=== PATIENT | female | born 1980 | race African-American/Black ===

== ENCOUNTER 2017-06-22 15:54 | Emergency (ER) | payer SELFPAY ==
[2017-06-22] MEDS ORDERED: Dexamethasone 10 MG/ML VIAL ONE (16:22)
== END 2017-06-22 16:32 | disposition home or self-care (01) ==
LOC: ERS 15:54
DX: J06.9 Acute upper respiratory infection, unspecified (principal); H66.91 Otitis media, unspecified, right ear; E11.9 Type 2 diabetes mellitus without complications; E66.9 Obesity, unspecified; E78.5 Hyperlipidemia, unspecified; I10 Essential (primary) hypertension; F41.9 Anxiety disorder, unspecified; F32.9 Major depressive disorder, single episode, unspecified; Z79.4 Long term (current) use of insulin
CPT/HCPCS: 99283; J1100

== ENCOUNTER 2017-07-14 09:40 | Emergency (ER) | payer MEDICAID, SELFPAY | END 2017-07-14 10:25 | disposition home or self-care (01) | LOC: SCSER 09:40 | DX: L25.9 Unspecified contact dermatitis, unspecified cause (principal); E11.40 Type 2 diabetes mellitus with diabetic neuropathy, unspecified; I10 Essential (primary) hypertension; F41.9 Anxiety disorder, unspecified; F32.9 Major depressive disorder, single episode, unspecified | CPT/HCPCS: 99282 ==

== ENCOUNTER 2017-08-09 11:13 | Emergency (ER) | payer MEDICAID, SELFPAY ==
[2017-08-09 11:49] LABS: #Basophils 0.1 thou/uL (0.0-0.2); #Eosinphils 0.1 thou/uL (0.0-0.7); #Lymphocytes 2.9 thou/uL (1.20-3.40); #Monocytes 0.4 thou/uL (0.11-0.59); %Basophils 1.6 % (0.0-1.0); %Eosinophils 2.3 % (0.0-10.0); %Lymphocytes 44.5 % (21.0-51.0); %Monocytes 6.2 % (0.0-10.0); %Neutrophils 45.4 % (42.0-75.0); Hemoglobin 12.8 g/dL (12.0-16.0); Mean Corpuscular HGB CONC 34.6 g/dL (32.0-36.0); Mean Corpuscular Volume 83.9 fl (81.0-99.0); Mean Platelet Volume 7.7 fL (7.4-10.4); Platelet Count 216 thou/uL (130-400); RBC Distribution Width 11.3 % (11.5-14.5); Red Blood Cell (RBC) Count 4.41 mill/uL (4.20-5.40); White Blood Cell (WBC) Count 6.5 thou/uL (4.8-10.8)
== END 2017-08-09 15:20 | disposition home or self-care (01) ==
LOC: ERS 11:13
DX: N93.8 Other specified abnormal uterine and vaginal bleeding (principal); E11.40 Type 2 diabetes mellitus with diabetic neuropathy, unspecified; E66.9 Obesity, unspecified; E78.5 Hyperlipidemia, unspecified; I10 Essential (primary) hypertension; F41.9 Anxiety disorder, unspecified; F32.9 Major depressive disorder, single episode, unspecified
CPT/HCPCS: 36415; 84702; 85025; 99284

== ENCOUNTER 2017-08-18 10:25 | Emergency (ER) | payer SELFPAY ==
--- NOTE | 2017-08-18 11:15 | RAD ---
FOUR VIEWS RIGHT KNEE: Date: 08-18-17 History: Chronic right knee pain with superimposed more acute injury. Patient tripped and fell injuri ng right knee on Friday. Comparison: 03-03-15 FINDINGS: There is tricompartment osteophytosis. There is mild narrowing of the lateral joint compartment. No f racture or dislocation is seen. Again noted is the corticated curvilinear osseous density adjacent to the medial femoral condyle which may be related to heterotopic ossification. No significant joint ef fusion is present. No other interval change. IMPRESSION: 1. Osteoarthritis with mild narrowing of the lateral joint compartment. 2. No acute fracture or dislocation of the right knee. POS: [facility]
[2017-08-18] MEDS ORDERED: Adacel (T-DAP) 0.5 ML VIAL ONE (11:55)
== END 2017-08-18 12:10 | disposition home or self-care (01) ==
LOC: SCSER 10:25
DX: S83.91XA Sprain of unspecified site of right knee, initial encounter (principal); S60.411A Abrasion of left index finger, initial encounter; B37.3 Candidiasis of vulva and vagina; M17.11 Unilateral primary osteoarthritis, right knee; E66.9 Obesity, unspecified; E78.5 Hyperlipidemia, unspecified; I10 Essential (primary) hypertension; Z79.4 Long term (current) use of insulin; X50.1XXA Overexertion from prolonged static or awkward postures, initial encounter
CPT/HCPCS: 90471; 90715

== ENCOUNTER 2017-09-02 09:54 | Outpatient (CLI) | payer MEDICAID | END 2017-09-02 09:55 | disposition home or self-care (01) | LOC: BICULT 09:54 | PROVIDERS: ATTEND Nurse Practitioner | DX: N92.6 Irregular menstruation, unspecified (principal); N83.8 Other noninflammatory disorders of ovary, fallopian tube and broad ligament | CPT/HCPCS: 76856 ==

== ENCOUNTER 2017-09-19 17:06 | Observation (INO) | payer MEDICAID, SELFPAY ==
[2017-09-19 19:23] LABS: #Basophils 0.1 thou/uL (0.0-0.2); #Eosinphils 0.1 thou/uL (0.0-0.7); #Lymphocytes 3.1 thou/uL (1.20-3.40); #Monocytes 0.4 thou/uL (0.11-0.59); #Neutrophils 3.8 thou/uL (1.40-6.50); %Basophils 1.3 % (0.0-1.0); %Eosinophils 1.8 % (0.0-10.0); %Monocytes 5.6 % (0.0-10.0); %Neutrophils 50.4 % (42.0-75.0); Hemoglobin 13.2 g/dL (12.0-16.0); Mean Corpuscular HGB CONC 33.9 g/dL (32.0-36.0); Mean Corpuscular Hemoglobin 28.4 pg (27.0-31.0); Mean Corpuscular Volume 83.6 fl (81.0-99.0); Mean Platelet Volume 8.6 fL (7.4-10.4); Platelet Count 241 thou/uL (130-400); RBC Distribution Width 11.6 % (11.5-14.5); Red Blood Cell (RBC) Count 4.66 mill/uL (4.20-5.40); White Blood Cell (WBC) Count 7.5 thou/uL (4.8-10.8)
[2017-09-19 19:43] LABS: ALT (SGPT) 24 U/L (8-55); AST (SGOT) 23 U/L (5-34); Albumin 3.7 g/dL (3.5-5.0); Alkaline Phosphatase 96 U/L (40-150); Anion Gap 19 mmol/L (10-20); BUN (Urea Nitrogen) 10 mg/dL (7.0-18.7); Bilirubin, Total 0.3 mg/dL (0.2-1.2); Calc. Creatinine Clearance 0 mL/min (70-130); Calcium 9.1 mg/dL (7.8-10.44); Carbon Dioxide 23 mmol/L (22-29); Chloride 97 mmol/L (98-107); Estimated GFR-MDRD 71; Globulin 3.7 g/dL (2.4-3.5); Glucose 373 mg/dL (70-105); Potassium 3.9 mmol/L (3.5-5.1); Protein, Total 7.4 g/dL (6.0-8.3); Sodium 135 mmol/L (136-145)
[2017-09-19] MEDS ORDERED: Lidocaine Viscous Sol 2% 15 ml UD Cup ONE (22:01)
[2017-09-19] MEDS ORDERED: Mag-Al 1200 mg/1200 mg/30 ML UDCUP ONE (22:01)
[2017-09-19 22:17] LABS: Bilirubin Negative (Negative); Blood, Urine Negative (Negative); Clarity CLEAR (Clear); Glucose, Urine (Dipstick) >=1000 mg/dL (Negative); Leukocyte Negative (Negative); Nitrite Negative (Negative); Pregnancy Test - Urine (BHCG) Negative (Negative); Pregu Control Background? CLEAR/WHITE (CLR/WHITE); Pregu Control Bar Appear? YES (CONTROL BAR); Protein, Urine (Dipstick) Negative (Neg-Trace); Specific Gravity, Urine 1.026 (1.002-1.036); Urobilinogen 0.2 mg/dL (0.2-1.0); pH, Urine 5.5 (5.0-9.0)
[2017-09-19 22:18] LABS: Specific Gravity 1.026 (1.002-1.036)
[2017-09-19 22:46] LABS: CKMB 1.1 ng/mL (0-6.6); Troponin I Less than 0.010 ng/mL (< 0.028)
--- NOTE | 2017-09-19 23:49 | ULT ---
GALLBLADDER ULTRASOUND: 09/19/17 HISTORY: Right upper quadrant pain. Real time imaging of the right upper quadrant shows a normal appearing gallbladder. No gallstones or gallbladder wall thickening. The technologist reports a negative ultrasound Morris's sign. The visual ized liver parenchyma is of increased echogenicity suggesting some fatty change. The common duct is 4 mm. Pancreas is obscured. Right kidney is normal in size and not obstructed. IMPRESSION: 1. No evidence of gallstones. 2. Fatty changes of the liver. POS: [facility]
[2017-09-20] MEDS ORDERED: Ondansetron HCl/PF 4 MG/2 ML Vial ONE (01:42)
[2017-09-20] MEDS ORDERED: Insulin Regular 300 UNITS/3 ML VIAL ONE (02:25)
[2017-09-20 02:35] LABS: Hemoglobin A1c 10.7 % (4.0-6.0)
[2017-09-20 02:47] LABS: Base Excess-Venous -4.4 mmol/L (-30.0-30.0); Bicarbonate (HCO3v) 21.2 mmol/L (1.0-85.0); CO2 Tension (PvCO2) 39.7 mmHg (41.0-51.0); Calcium, Ionized 1.05 mmol/L (1.12-1.32); Hemoglobin - Calc 12.5 g/dL (12.0-18.0); O2 Tension (PvO2) 52.1 mmHg (35.0-45.0); T. Carbon Dioxide 22.4 mmol/L (1.0-85.0); pH (Venous) 7.335 (7.35-7.45); vO2 Saturation-calc 84.2 % (0.0-100.0)
[2017-09-20] MEDS ORDERED: Dextrose 50% Abboject 50 ML SYRINGE IVP PRN (03:53)
[2017-09-20] MEDS ORDERED: Dextrose 5% in Water 1,000 ML IV PRN ×2 (03:53→10:00)
[2017-09-20] MEDS ORDERED: Insulin Regular 300 UNITS/3 ML VIAL SC PRN (03:54)
[2017-09-20 04:20] LABS: Lactic Acid 3.3 mmol/L (0.5-2.2)
[2017-09-20] MEDS: Sodium Chloride 0.45% 1,000 ML IV SCH ×2 (05:06→16:27)
[2017-09-20] MEDS ORDERED: metroNIDAZOLE 500 MG in Premix Bag 1 BAG IVPB SCH (06:00)
--- NOTE | 2017-09-20 08:47 | CT ---
PRELIMINARY REPORT/[facility]/EMERGENCY AFTER HOURS PROCEDURE: EXAM: CT Abdomen and Pelvis With Intravenous Contrast CLINICAL HISTORY: 37 years old, female; Pain; Abdominal pain; Localized; Upper; Prior surgery; Patient HX: Er 18; 37 yo f presents to ed C/O upper abdominal pain onset yesterday. Pt states that she has h/o acid reflux. States that yesterday she started feeling like she was having reflux and felt bloated then started solano ving upper abdominal pain. Reports nausea, denies vomiting. Denies urinary complaints. Also reports c onstipation, last bm on , denies diarrhea. Surgical history of section x2, surgical history of tubal ligation TECHNIQUE: Axial computed tomography images of the abdomen and pelvis with intravenous contrast. Coronal reformatted images were created and reviewed. COMPARISON: No relevant prior studies available. FINDINGS: Lower thorax: 10 x 9 mm noncalcified nodule within the posterior left lower lobe, with possible feedi ng artery and draining vein, suggesting pulmonary arteriovenous malformation. ABDOMEN: Liver: Hepatic steatosis. Gallbladder and bile ducts: Normal. Pancreas: Normal. Spleen: Normal. Adrenals: Normal. Kidneys and ureters: Normal. Stomach and bowel: Mild wall thickening of the distal sigmoid colon and rectum, with minimal adjacent associated inflammatory stranding, likely infectious/inflammatory colitis. Appendix: The appendix is normal. PELVIS: Bladder: Normal. Reproductive: Normal as visualized. ABDOMEN and PELVIS: Intraperitoneal space: Normal. No free air. No significant fluid collection. Bones/joints: No acute fracture. No dislocation. Soft tissues: Small fat containing umbilical hernia. Vasculature: Phleboliths within the pelvis. No abdominal aortic aneurysm. Lymph nodes: Normal. IMPRESSION: 1. Mild wall thickening of the distal sigmoid colon and rectum, with minimal adjacent associated infl ammatory stranding, likely infectious/inflammatory colitis. 2. 10 x 9 mm noncalcified nodule within the posterior left lower lobe, with possible feeding artery a nd draining vein, suggesting pulmonary arteriovenous malformation. Recommend comparison to previous s tudies. If not available, recommend CT angiography chest for more definitive evaluation. 3. Incidental/non-acute findings are described above. Thank you for allowing us to participate in the care of your patient. Dictated and Authenticated by: Inderjit Penny MD 09/20/2017 2:00 AM Central Time ([place] & [place]) FINAL REPORT EMERGENCY AFTER HOURS CT ABDOMEN AND PELVIS WITH IV CONTRAST: Date: 09/20/17 HISTORY: Upper abdominal pain with onset of symptoms 1 day ago. History of acid reflux. Bloating and nausea. COMPARISON: Nonenhanced CT scan examination on 09/27/10. IMPRESSION: 1. Left lower lobe pulmonary nodule with measurement of 14.0 mm. Initial preliminary report by [facility] suggested this could potentially represent an arteriovenous malformation given proximity to vessels i n this region. However, this was not present on prior CT examination on 08/08/11. Follow-up CT angiog meseret of the thorax is recommended. 2. Mild fatty infiltration of the liver. 3. No CT evidence of appendicitis. 4. There is an approximately 3.2 cm left adnexal cystic structure probably related to an ovarian cys t. 5. There is mention of mild wall thickening of the distal sigmoid colon and rectum by Eliezerad. While th is could be related to colitis, this may be related to incomplete distention. Findings are in agreement with the preliminary report by [facility]ecia. POS: [facility]
[2017-09-20] MEDS ORDERED: Bisacodyl 5 MG TAB PO PRN (09:57)
[2017-09-20] MEDS ORDERED: Acetaminophen 325 MG TAB PO PRN (09:57)
[2017-09-20] MEDS ORDERED: Acetaminophen 650 MG Suppository PR PRN (09:57)
[2017-09-20] MEDS ORDERED: Dextrose 50% Abboject 50 ML SYRINGE SLOW IVP PRN (10:00)
[2017-09-20] MEDS: HumaLOG 300 UNITS/3 ML VIAL SC PRN ×3 (12:25→21:35)
[2017-09-20] MEDS ORDERED: Pantoprazole 40 MG VIAL IVP PRN (12:31)
[2017-09-20] MEDS ORDERED: Nitroglycerin 0.4 MG TAB (25 Tab Bottle) PO PRN (13:08)
--- NOTE | 2017-09-20 13:29 | HP ---
PRIMARY CARE PROVIDER: [facility]. CHIEF COMPLAINT: Abdominal pain. HISTORY OF PRESENT ILLNESS: Ms. Black is a pleasant 37-year-old lady who was seen at [facility] on 05/20/2018. She reports that the pain started 2 days ago. It is in the epigas trium, on and off, she reports feeling occasionally lightheaded when standing up. Her left arm hurt. She also reports mild chest discomfort that lasted briefly, but has not recurred. She denies any f tray or chills. She reports nausea, but no vomiting. She denies any diarrhea. She has been taking metronidazole over the last 3 days for vaginal infection. She had no other complaints. By the time I saw her, she reports that her epigastric pain has improve d. REVIEW OF SYSTEMS: The following complete review of systems was negative, unless otherwise mentioned in the HPI or below: Constitutional: Weight loss or gain, ability to conduct usual activities. Skin: Rash, itching. Eyes: Double vision, pain. ENT/Mouth: Nose bleeding, neck stiffness, pain, tenderness. Cardiovascular: Palpitations, dyspnea on exertion, orthopnea. Respiratory: Shortness of breath, wheezing, cough, hemoptysis, fever or night sweats. Gastrointestinal: Poor appetite, abdominal pain, heartburn, nausea, vomiting, constipation, or diarr hea. Genitourinary: Urgency, frequency, dysuria, nocturia. Musculoskeletal: Pain, swelling. Neurologic/Psychiatric: Anxiety, depression. Allergy/Immunologic: Skin rash, bleeding tendency. PAST MEDICAL HISTORY: Significant for diabetes mellitus type 2, diabetic neuropathy, chronic right k nee pain, obesity, dyslipidemia, and hypertension. PAST SURGICAL HISTORY: Significant for section x2, tubal ligation and left second toe amput ation for osteomyelitis. PSYCHIATRIC HISTORY: Significant for anxiety, depression. SOCIAL HISTORY: The patient is a current smoker. She denies alcohol use or recreational drug use. FAMILY HISTORY: Both parents had diabetes mellitus and heart disease. ALLERGIES: No known drug allergies. CURRENT MEDICATIONS: Include Lantus insulin 30 units subcutaneously 2 times a day, NovoLog insulin a s needed on sliding scale and metronidazole. PHYSICAL EXAMINATION: GENERAL: On examination, Ms. Black is awake and alert, not in acute distress. VITAL SIGNS: Blood pressure is 116/78, pulse is 93. She is breathing at rate of 16 and saturating 9 6% on room air. She is afebrile. She is morbidly obese, with BMI of 44.7 kilogram per square meter. EYES: No scleral icterus. No conjunctival pallor. ENT: Moist mucosal membranes, no oropharyngeal erythema or exudates. NECK: Supple, nontender, normal range of movement. Trachea is midline. RESPIRATORY: Accessory muscles of breathing are not active. Chest wall movements are symmetric bila terally. LUNGS: Clear to auscultation, without wheeze, rhonchi or crepitations. CARDIOVASCULAR: S1 and S2 are heard, regular. LUNGS: Peripheral pulses palpable. No carotid bruit, no pericardial rub. ABDOMEN: Soft, mild epigastric tenderness, no guarding or rigidity. Bowel sounds are heard, no hepa tomegaly, no splenomegaly. NEUROLOGIC: Cranial nerves II-XII intact. Deep tendon reflexes are 2+. MUSCULOSKELETAL: Power is 5/5 in all 4 extremities. Normal range of movement at all major extremity joints. Status post left second toe amputation. SKIN: No rashes or subcutaneous nodules. LYMPHATIC: No cervical lymphadenopathy. PSYCHIATRIC: Normal mood, normal affect. The patient is oriented to person, place, and time. IMAGING DATA AND LABORATORY DATA: Ms. Black' labs and investigations were reviewed. I reviewed her electrocardiogram, which shows normal sinus rhythm, no ST changes to suggest an acute coronary syndro me. She does have poor R-wave progression. She had a CT scan of the abdomen and pelvis, which showed a left lower lobe pulmonary nodule, which c ould be an AV malformation. Followup angiogram of the chest is recommended by radiologist. She also has mild fatty infiltration of the liver, no CT evidence of appendicitis and 3.2 cm left adnexal cys tic structure, probably related to an ovarian cyst. CT scan was initially reported as showing mild w all thickening of the distal sigmoid colon and rectum. Local radiologist feels that this could be re lated to incomplete distention. She also had abdominal ultrasound, which did not show any evidence o f gallstones. She had fatty changes in the liver. Laboratory investigations show normal lipase, leydi vated lactic acid of 3.3, decreased sodium of 135, normal potassium, normal creatinine, unremarkable liver profile and an unremarkable CBC. Urinalysis is positive for glucose. Urine test is negative. She has elevated beta hydroxybutyrate of 0.58. I should note that she has a normal carbon dioxide the normal anion gap. ASSESSMENT AND PLAN: Ms. Black is a pleasant 37-year-old lady who was seen at [facility] on 09/20/2017. Her problem list includes: 1. Abdominal pain: Etiology not known. CT findings as described above. However, this does not cor relate with location of the pain even if it was colitis. She does not have any other symptoms of col itis such as diarrhea. We will not continue her on antibiotics except for the metronidazole, which s he is taking for vaginal infection. She seems to be tolerating diet well and was eating pizza when I saw her. 2. Hyponatremia: Mild, we will recheck. 3. Lung lesion: The patient will likely need a CT scan of the chest as outpatient for evaluation o f this lesion. 4. Chest pain: Given her significant risk factors, we will request a stress test. 5. Diabetes mellitus: Start Accu-Cheks, insulin sliding scale. Many thanks for allowing me to participate in your patient's care. Please feel free to contact me wi th any questions or concerns. LEVEL OF RISK: Moderate. LEVEL OF COMPLEXITY: Moderate.
[2017-09-20 15:00] LABS: Troponin I Less than 0.010 ng/mL (< 0.028)
[2017-09-20] MEDS ORDERED: metroNIDAZOLE 500 MG TAB PO SCH (15:00)
[2017-09-20 16:35] VITALS: BMI 46.3
[2017-09-20] MEDS ORDERED: ISOVUE-370 76%-LOCM 1 ML ONE (16:44)
[2017-09-21 05:29] LABS: #Basophils 0.1 thou/uL (0.0-0.2); #Eosinphils 0.1 thou/uL (0.0-0.7); #Lymphocytes 2.1 thou/uL (1.20-3.40); #Monocytes 0.4 thou/uL (0.11-0.59); #Neutrophils 2.5 thou/uL (1.40-6.50); %Basophils 1.2 % (0.0-1.0); %Eosinophils 2.6 % (0.0-10.0); %Monocytes 8.2 % (0.0-10.0); %Neutrophils 48.1 % (42.0-75.0); Hemoglobin 11.5 g/dL (12.0-16.0); Mean Corpuscular HGB CONC 33.8 g/dL (32.0-36.0); Mean Corpuscular Hemoglobin 28.3 pg (27.0-31.0); Mean Corpuscular Volume 83.8 fl (81.0-99.0); Mean Platelet Volume 8.5 fL (7.4-10.4); Platelet Count 196 thou/uL (130-400); RBC Distribution Width 11.4 % (11.5-14.5); Red Blood Cell (RBC) Count 4.06 mill/uL (4.20-5.40); White Blood Cell (WBC) Count 5.1 thou/uL (4.8-10.8)
[2017-09-21 05:49] LABS: Anion Gap 13 mmol/L (10-20); BUN (Urea Nitrogen) 9 mg/dL (7.0-18.7); Calc. Creatinine Clearance 195 mL/min (70-130); Calcium 8.6 mg/dL (7.8-10.44); Carbon Dioxide 24 mmol/L (22-29); Chloride 104 mmol/L (98-107); Estimated GFR-MDRD Greater than 90; Glucose 280 mg/dL (70-105); Potassium 4.4 mmol/L (3.5-5.1); Sodium 137 mmol/L (136-145)
[2017-09-21] MEDS ORDERED: Enoxaparin Sodium 40 MG/0.4 ML SYRINGE SC SCH (09:00)
--- NOTE | 2017-09-21 12:41 | NM ---
NUCLEAR MEDICINE CARDIAC MYOCARDIAL PERFUSION SPECT EJECTION FRACTION STUDY WALL MOTION CINE: HISTORY: 37-year-old female smoker with diabetes mellitus, dyslipidemia, hypertension, and family history of c oronary artery disease, presents with acute chest pain. Dr. Vasquez reported the acute myocardial ischemia by telephone with nurse, Lilly Orantes RN, at 12:29 p .m. on 09-21-17. TECHNIQUE: Number of days: 2 Rest study: Tc99m sestamibi (Cardiolite) dose: 39.3 mCi Pharmacologic stress: adenosine dose: 70 mg Stress study: Tc99m sestamibi (Cardiolite) dose: 27.5 mCi FINDINGS: CARDIAC (MYOCARDIAL PERFUSION) SPECT There is a small to moderate sized perfusion defect in the anteroseptal wall near the apex on the str ess images, which is not present on the rest images. EJECTION FRACTION STUDY EF = 60% WALL MOTION CINE No gross wall motion abnormality identified. IMPRESSION: 1. Positive for reversible ischemia involving the left anterior descending coronary artery territory. Code CR JN R POS: [facility]
[2017-09-21] MEDS: HumaLOG 300 UNITS/3 ML VIAL SC PRN ×2 (15:04→22:37)
[2017-09-21] MEDS: metroNIDAZOLE 500 MG TAB PO SCH ×2 (15:06→21:20)
[2017-09-21] MEDS ORDERED: Communication Order-Pharmacy FS SCH (17:45)
--- NOTE | 2017-09-21 17:48 | PRG ---
DATE OF SERVICE: 09/21/2017 SUBJECTIVE: The patient is seen and examined at the bedside. She does not have nausea, vomiting, or abdominal pain anymore. Her chest pain is gone too. She does not have any diarrhea or constipation . She just came back from the Radiology Department where she had her stress test done. OBJECTIVE: GENERAL: She is very obese. VITAL SIGNS: Blood pressure is 123/78, pulse is 89, respiratory rate is 16, O2 saturation is 99% on room air, temperature is 97.3 degrees Fahrenheit. Her BMI is 45.9. HEENT: Head is atraumatic, normocephalic. Eyes: PERRLA. Sclerae nonicteric. Conjunctivae pinkish . Oral mucosa is moist. NECK: Obese, supple. LUNGS: Clear. HEART: S1, S2 normal, no S3, no S4, no any murmur. ABDOMEN: Obese, nondistended. Bowel sounds are present. EXTREMITIES: No clubbing, cyanosis, or edema. NEUROLOGIC: She is alert and oriented x4. There is no any sensory or motor deficits present. Crani al nerves are intact. LABORATORY DATA AND X-RAY FINDINGS: Showed white count of 5.1, hemoglobin 11.5, hematocrit 34.1, baldomero telet count is 196,000. Normal chemistry except for glucose which is 280. Accu-Cheks are running be tween 271 and 327, calcium is 8.6. Nuclear test on her heart was done and it showed positive for rev ersible ischemia involving the left anterior descending coronary artery territory. IMPRESSION: 1. Abdominal pain which improved to the point that she does not have much of any symptoms anymore. 2. Chest pain with positive stress test. 3. Left lower lobe nodule measuring 14 mm, most likely arteriovenous malformation, giving proximity to vessels in this region, but that is not very certain. Radiologist is recommending CT angiogram of the thorax to evaluate this situation. 4. Left adnexal cyst 3.2 cm. 5. Diabetes mellitus with elevated glycemia, most likely secondary to situation that she is not back on her long-acting insulin yet. 6. Morbid obesity with body mass index of 45. PLAN: The patient was told that she will have to have follow up with her primary care physician afte r discharge from the hospital and the primary care physician will make decision whether she will have to be set up for the CT angiogram of the chest or this will be done through Pulmonary doctor donald stratton. At this point, we are going to have Dr. Talavera to be consulted regarding her positive stress test , most likely she will have to go through the cardiac catheterization tomorrow. We will start her on a long-acting insulin 30 units twice a day, this insulin glargine and she will be back on her lisino pril and metronidazole 500 mg 3 times a day. I believe that the outpatient follow up for her pulmona ry nodule evaluation would be most appropriate since she is going to have most likely additional IV c ontrast to evaluate her heart condition, but this will be defined after the Cardiology consultation i s done. We will continue her Accu-Cheks before meals and at bedtime.
--- NOTE | 2017-09-21 18:33 | CON ---
DATE OF CONSULTATION: 09/21/2017 REASON FOR CONSULTATION: Abnormal stress test. HISTORY OF PRESENT ILLNESS: Ms. Black is a pleasant 37-year-old female who comes to the hospital for chest pain. She was starting to have a left-sided chest pain into the shoulder and to the arm yesterday evening. She took an ibuprofen, woke up the next morning without the pain. Kendra mistry also started to feel epigastric pain the next morning, so she decided to come in for evaluation. S he has been dealing with this for the last two days. Currently, she is pain free. PAST MEDICAL HISTORY: 1. Hypertension. 2. Hyperlipidemia. 3. Obesity. 4. Type 2 diabetes with diabetic neuropathy. 5. Chronic right knee pain. PAST SURGICAL HISTORY: 1. x2. 2. Tubal ligation. 3. Left second toe amputation for osteomyelitis. SOCIAL HISTORY: She denies any tobacco even though the chart says current smoker. She tells me she does not smoke. Denies any alcohol or drug use. FAMILY HISTORY: Both parents have diabetes and heart disease. OUTPATIENT MEDICATIONS: Include, 1. Lantus 30 units subcu twice a day. 2. NovoLog insulin sliding scale. 3. Metronidazole for vaginal infection recently. ALLERGIES: No known drug allergies. REVIEW OF SYSTEMS: A 12-point review of systems was done and is all negative unless stated in the hi story of present illness. PHYSICAL EXAMINATION: VITAL SIGNS: Temperature 97.2, pulse 104, respiratory rate 16, satting 95% on room air. Blood press ure 129/77. GENERAL: Awake, alert, oriented x3. No distress. HEENT: Normocephalic, atraumatic. NECK: Supple. LUNGS: Clear. CARDIOVASCULAR: S1, S2, no S3 or S4. No murmurs. No rubs. ABDOMEN: Soft, positive bowel sounds. EXTREMITIES: No edema. SKIN: Warm and dry. LABORATORY WORK: CBC was unremarkable. ABG chemistries were unremarkable. GFR is greater than 90. Troponin was undetectable x3. UA was negative except for 1000 glucose. Beta hydroxybutyrate was li ttle bit high 0.58. CT of the abdomen and pelvis was reviewed. She has what appears to be a little bit of colitis in the distal sigmoid. This is not consistent with her symptoms. She also have a noncalcified nodule in t he posterior left lower lobe. This is just of an AV malformation. Stress test shows normal LV funct ion with moderate size anterior ischemia. ASSESSMENT: 1. Chest pain. 2. Abnormal stress test showing possible anterior ischemia left anterior descending distribution. 3. Possible sigmoid colitis asymptomatic. 4. Diabetes poorly controlled with elevated hemoglobin A1c. PLAN: We spoke at length about further risk stratification for the heart catheterization. She is ag reeable to proceeding. We spoke about the risk and benefit of the procedure. Risks including but no t limited to stroke, LA, , bleeding, and need for blood transfusion, need for emergent vessel re pair, need for emergency bypass surgery. We spoke about bare metal drug eluting stent. We will do b are metal stenting. We also spoke about contrast reaction. She agrees to proceed. Bare metal stent s if needed. Further recommendations per results of coronary angiogram.
[2017-09-21] MEDS ORDERED: Non-Formulary Item 1 EACH (Insulin Glargine,Hum.Rec.Anlog 30 UNIT) SQ SCH (21:00)
[2017-09-21] MEDS ORDERED: Insulin Detemir 100 UNITS/ML 30 UNITS in Pre-Filled Syringe 1 EACH SC SCH (21:00)
[2017-09-21] MEDS ORDERED: Atorvastatin Calcium 10 MG TAB PO SCH (21:00)
[2017-09-22] MEDS: metroNIDAZOLE 500 MG TAB PO SCH ×2 (05:17→14:43)
[2017-09-22] MEDS ORDERED: Sodium Chloride 0.9% 1,000 ML IV SCH (06:00)
--- NOTE | 2017-09-22 08:45 | PDOC.PN ---
- Subjective Encounter Start Date: 09/22/17 Encounter Start Time: 08:43 Subjective: nsg notes rev, sourav ovn, pt no new c/o, no further CP, no abd pain -: understands POC for [facility] today, no ques - Objective Vital Signs & Weight: Vital Signs (12 hours) Temp Pulse Resp BP BP Pulse Ox 09/22/17 07:56 97.8 F 106 H 16 124/72 96 09/22/17 05:17 95 121/76 09/22/17 04:00 96.9 F L 95 14 121/76 94 L Weight Weight 284 lb 4.8 oz I&O: 09/21/17 09/22/17 09/23/17 06:59 06:59 06:59 Intake Total 1575 1410 Output Total 2650 1800 Balance -1075 -390 Result Diagrams: 09/21/17 04:45 09/21/17 04:45 Additional Labs: Accuchecks 09/22/17 09/21/17 09/21/17 06:13 21:19 17:31 POC Glucose 294 H 300 H 306 H 09/21/17 12:55 POC Glucose 327 H Phys Exam - Physical Examination Constitutional: NAD HEENT: PERRLA, moist MMs Respiratory: no wheezing, no rales, no rhonchi, clear to auscultation bilateral Cardiovascular: RRR, no significant murmur, no rub Gastrointestinal: soft, non-tender, positive bowel sounds Musculoskeletal: no edema, pulses present Neurological: moves all 4 limbs Psychiatric: normal affect, A&O x 3 Dx/Plan - Plan * chest pain * concern for + stress test, apprec cardiology c/s * plan for [facility] today concern for colitis C diff negative suspect potential viral etiology continue to monitor, no further diarrhea t/c d/c flagyl s/p 7d oral course diet: cardiac post cath activity: as angel post cath dvt ppx: enoxaparin Review of Systems - Medications/Allergies Allergies/Adverse Reactions: Allergies Allergy/AdvReac Type Severity Reaction Status Date / Time No Known Allergies Allergy Verified 09/20/17 03:46 Medications: Current Medications Acetaminophen (Tylenol) 650 mg PO Q4H PRN PRN Reason: Headache/Fever or Pain Last Admin: 09/21/17 18:28 Dose: 650 mg Acetaminophen (Tylenol) 650 mg [place] Q4H PRN PRN Reason: Headache/Fever or Pain Atorvastatin Calcium (Lipitor) 10 mg PO HS [facility] Last Admin: 09/21/17 21:21 Dose: 10 mg Bisacodyl (Dulcolax) 10 mg PO DAILYPRN PRN PRN Reason: Constipation Dextrose/Water (Dextrose 50%) 25 gm SLOW IVP PRN PRN PRN Reason: Hypoglycemia Glucagon (Glucagon) 1 mg IM PRN PRN PRN Reason: Hypoglycemia Dextrose/Water (D5w) 1,000 mls @ 0 mls/hr IV .Q0M PRN; As Directed PRN Reason: Hypoglycemia Sodium Chloride (Normal Saline 0.9%) 1,000 mls @ 100 mls/hr IV .Q10H [facility] Last Admin: 09/22/17 05:16 Dose: 1,000 mls Lisinopril (Zestril) 5 mg PO DAILY [facility] Last Admin: 09/22/17 05:17 Dose: 5 mg Metronidazole (Flagyl) 500 mg PO TID [facility] Last Admin: 09/22/17 05:17 Dose: 500 mg Miscellaneous Information (Communication Order-Pharmacy) 0 each FS ONE [facility] Stop: 09/22/17 12:00 Nitroglycerin (Nitrostat) 0.4 mg PO Q5MIN PRN PRN Reason: Chest Pain Pantoprazole Sodium (Protonix) 40 mg IVP DAILY PRN PRN Reason: Heartburn or Indigestion Last Admin: 09/20/17 12:53 Dose: 40 mg Pantoprazole Sodium (Protonix) 40 mg PO DAILY PRN PRN Reason: Heartburn or Indigestion Saccharomyces Boulardii (Florastor) 250 mg PO DAILY [facility] Last Admin: 09/22/17 05:16 Dose: 250 mg Sodium Chloride (Flush - Normal Saline) 10 ml IVF Q12HR [facility] Last Admin: 09/22/17 05:18 Dose: 10 ml Sodium Chloride (Flush - Normal Saline) 10 ml IVF PRN PRN PRN Reason: Saline Flush
[2017-09-22] MEDS ORDERED: Saccharomyces boulardii 250 MG CAP PO SCH (09:00)
[2017-09-22] MEDS ORDERED: Lisinopril 5 MG TAB PO SCH (09:00)
[2017-09-22] MEDS ORDERED: Heparin 0 ML ONE (12:54)
[2017-09-22] MEDS ORDERED: Lidocaine 1% (PF) 30 ML VIAL ONE (13:05)
[2017-09-22] MEDS ORDERED: Heparin 10,000 UNITS/1 ML VIAL ONE (13:25)
[2017-09-22] MEDS ORDERED: Verapamil 5 MG/2 ML VIAL ONE (13:25)
[2017-09-22] MEDS ORDERED: Nitroglycerin 100MG/250ML BOT 250 ML ONE (13:25)
[2017-09-22] MEDS ORDERED: Midazolam HCl 2 mg/2 ml Vial ONE (13:36)
[2017-09-22] MEDS ORDERED: Fentanyl 100 MCG/2 ML VIAL ONE (13:37)
[2017-09-22 14:15] VITALS: BP 130/88; TEMP 97.6
== END 2017-09-22 19:35 | disposition home or self-care (01) ==
LOC: ERS 17:06 → SURG A 09-20 03:32 → 2SW 09-20 16:30
PROVIDERS: ADMIT Internal Medicine; ATTEND Internal Medicine
DX: R07.9 Chest pain, unspecified (principal); I10 Essential (primary) hypertension; E78.5 Hyperlipidemia, unspecified; E11.40 Type 2 diabetes mellitus with diabetic neuropathy, unspecified; G89.29 Other chronic pain; M25.569 Pain in unspecified knee; E66.9 Obesity, unspecified; Z68.42 Body mass index [BMI] 45.0-49.9, adult; Z98.51 Tubal ligation status; Z89.422 Acquired absence of other left toe(s); Z83.3 Family history of diabetes mellitus; Z82.49 Family history of ischemic heart disease and other diseases of the circulatory system
CPT/HCPCS: 36415; 36416; 74177; 76705; 78452; 80048; 80053; 81003; 81025; 82010; 82330; 82435; 82553; 82803; 83036; 83605; 83690; 84132; 84295; 84484; 85014; 85025; 87045; 87046; 87324; 87449; 87493; 87899; 93005; 93017; 93458; 96361; 96365; 96372; 96374; 96375; 99152; 99406; A4216; A9500; C1769; C9113; G0378; J0153; J0744; J1644; J1650; J1815; J2001; J2250; J2270; J2405; J3010

== ENCOUNTER 2017-10-12 14:27 | Emergency (ER) | payer SELFPAY, OTHER | END 2017-10-12 15:11 | disposition home or self-care (01) | LOC: ERS 14:27 | DX: L02.31 Cutaneous abscess of buttock (principal); E11.40 Type 2 diabetes mellitus with diabetic neuropathy, unspecified; E78.5 Hyperlipidemia, unspecified; F41.9 Anxiety disorder, unspecified; F32.9 Major depressive disorder, single episode, unspecified; F17.210 Nicotine dependence, cigarettes, uncomplicated; Z79.4 Long term (current) use of insulin | CPT/HCPCS: 10060 ==

== ENCOUNTER 2017-10-14 09:57 | Emergency (ER) | payer SELFPAY, OTHER ==
[2017-10-14] MEDS ORDERED: Sulfameth/Trimethoprim DS 800-160mg TAB ONE (10:23)
[2017-10-14] MEDS ORDERED: Cephalexin 250 MG CAP ONE (10:23)
== END 2017-10-14 11:17 | disposition home or self-care (01) ==
LOC: ERS 09:57
DX: Z48.817 Encounter for surgical aftercare following surgery on the skin and subcutaneous tissue (principal); E11.40 Type 2 diabetes mellitus with diabetic neuropathy, unspecified; E78.5 Hyperlipidemia, unspecified; I10 Essential (primary) hypertension; F41.9 Anxiety disorder, unspecified; F32.9 Major depressive disorder, single episode, unspecified; Z79.4 Long term (current) use of insulin
CPT/HCPCS: 99282

== ENCOUNTER 2017-11-04 19:50 | Emergency (ER) | payer SELFPAY | END 2017-11-04 21:54 | disposition home or self-care (01) | LOC: ERS 19:50 | DX: N76.0 Acute vaginitis (principal); E11.40 Type 2 diabetes mellitus with diabetic neuropathy, unspecified; E66.9 Obesity, unspecified; E78.5 Hyperlipidemia, unspecified; I10 Essential (primary) hypertension; F32.9 Major depressive disorder, single episode, unspecified; F41.9 Anxiety disorder, unspecified; Z79.4 Long term (current) use of insulin | CPT/HCPCS: 99281 ==

== ENCOUNTER 2018-04-08 09:28 | Outpatient (CLI) | payer MEDICAID | END 2018-04-08 09:29 | disposition home or self-care (01) | LOC: BICMAMMO 09:28 | PROVIDERS: ATTEND Family Medicine | DX: Z12.31 Encounter for screening mammogram for malignant neoplasm of breast (principal); Z00.00 Encounter for general adult medical examination without abnormal findings | CPT/HCPCS: 77067 ==

== ENCOUNTER 2018-06-01 08:14 | Outpatient (CLI) | payer MEDICAID ==
--- NOTE | 2018-06-01 10:26 | PRG ---
DATE OF SERVICE: 06/01/2018 HISTORY: Ms. Laurel Black is a very pleasant 38-year-old who presented to the Wound Center fo r evaluation of an ulceration of the plantar surface of the right great toe. The patient was last se en in the Wound Center on 04/10/2017 for a wound of the left foot subsequent to amputation of the lef t second toe to the proximal phalanx. The patient states that the ulceration over the plantar surfac e of the right great toe now present began as a callus. She states that the wound has been treated w ith antibiotics. She states that the wound began in December of this year. She reports that she has been keeping her wound clean by cleansing with Dial soap. She states she has been dressing the wound wit h Triple Antibiotic ointment followed by gauze. PAST MEDICAL HISTORY: 1. Diabetes mellitus. 2. Hypertension. 3. Osteoarthritis. PAST SURGICAL HISTORY: 1. x2. 2. Tubal ligation. 3. Left second toe amputation for osteomyelitis. MEDICATIONS: 1. Lantus. 2. Novolin. 3. Lasix. PHYSICAL EXAMINATION: VITAL SIGNS: Temperature 97.6, pulse 85, respirations 19, blood pressure 132/82. Accu-Chek 274. EXTREMITIES: An ulceration of the plantar surface of the right great toe is present which measures a pproximately 0.5 x 2.0 cm. Granulation tissue is present within the wound margins. Nonviable tissue present within the wound margins was debrided with an excisional full-thickness debridement with the use of a curette. Callus desiccated tissue and undermining at the periphery of the wound were elimi nated with the use of scissors. No purulent drainage is associated with the wound. No erythema of t he skin surrounding the wound is present. No maceration of the skin of the periwound is noted. A do rsalis pedis pulse is palpable on the right. A posterior tibial pulse is not palpable. No significa nt edema of the right foot or lower leg is present on exam today. ASSESSMENT AND PLAN: 1. Ulceration of plantar surface of right great toe as described above. Dressing changes of Medihon ey and gauze secured with Coban will be initiated today. These dressing changes are to be performed on a daily basis after cleansing and irrigation. No antibiotics will be prescribed today based upon the appearance of the wound. I will see Ms. Black again in 1 week. The importance of offloading in achieving the healing of the ulceration has been discussed with Ms. Black today. 2. Diabetes mellitus. The patient's Accu-Chek in clinic today is 274. The patient has been told th at for optimal wound healing, her blood glucoses should remain below 150. 3. History of anemia. 4. Hypertension. 5. Osteoarthritis.
== END 2018-06-01 08:15 | disposition home or self-care (01) ==
LOC: WCC 08:14
PROVIDERS: ATTEND Family Medicine
DX: E11.621 Type 2 diabetes mellitus with foot ulcer (principal); L97.519 Non-pressure chronic ulcer of other part of right foot with unspecified severity; I10 Essential (primary) hypertension; M19.90 Unspecified osteoarthritis, unspecified site; Z86.2 Personal history of diseases of the blood and blood-forming organs and certain disorders involving the immune mechanism
CPT/HCPCS: 36416

== ENCOUNTER 2018-06-08 09:14 | Outpatient (CLI) | payer MEDICAID ==
--- NOTE | 2018-06-08 14:38 | PRG ---
DATE OF SERVICE: 06/08/2018 HISTORY: Ms. Laurel Black is a very pleasant 38-year-old, who presents to the [facility] fo r evaluation of an ulceration of the plantar surface of the right great toe. The patient previously stated that the ulceration over the plantar surface of the right great toe began as a callus. She st ated that the wound had been treated with antibiotics. She stated that the wounds began in December. She reported that she had been keeping her wound clean by cleansing with Dial soap. She st ated that, prior to being seen in the Wound Center, she had been dressing the wound with triple-antib iotic ointment followed by gauze. After being seen in the Wound Center, the patient was placed on dr tate changes of Medihoney and gauze secured with Coban. PHYSICAL EXAMINATION: VITAL SIGNS: Temperature 97.8, pulse 92, respirations 19, blood pressure 120/78. Accu-Chek 271. EXTREMITIES: The ulceration of the plantar surface of the right great toe measures approximately 0.4 x 0.3 cm. Granulation tissue was present within the wound margins. Necrotic and nonviable tissue p resent within the wound margins was debrided with an excisional full-thickness debridement with the u se of a curette and scissors. Callus desiccated tissue and undermining at the periphery of the wound were also eliminated with the use of scissors. No purulent drainage is associated with the wound. No erythema of the skin surrounding the wound is present. No maceration of the skin of the periwound is noted. No significant edema of the right foot is present on exam today. ASSESSMENT AND PLAN: 1. Ulceration of plantar surface of right great toe as described above. Dressing changes of Medihon ey and gauze secured with Coban will be continued on a daily basis after cleansing and irrigation. T he patient will continue to perform her own dressing changes. I will see Ms. Black again in 1 week. 2. Diabetes mellitus. The patient's Accu-Chek in clinic today is 271. The patient has been reminde d that, for optimal wound healing, her blood glucoses should remain below 150. 3. History of anemia. 4. Hypertension. 5. Osteoarthritis.
== END 2018-06-08 09:15 | disposition home or self-care (01) ==
LOC: WCC 09:14
PROVIDERS: ATTEND Family Medicine
DX: E11.621 Type 2 diabetes mellitus with foot ulcer (principal); L97.519 Non-pressure chronic ulcer of other part of right foot with unspecified severity; I10 Essential (primary) hypertension; M19.90 Unspecified osteoarthritis, unspecified site; Z86.2 Personal history of diseases of the blood and blood-forming organs and certain disorders involving the immune mechanism
CPT/HCPCS: 11042; 36416

== ENCOUNTER 2018-06-15 08:12 | Outpatient (CLI) | payer MEDICAID ==
--- NOTE | 2018-06-15 09:12 | PRG ---
DATE OF SERVICE: 06/15/2018 HISTORY: Ms. Laurel landry is a very pleasant 38-year-old who presents to the [facility]ound Center for evaluation of an ulceration of the plantar surface of the right great toe. The patient previously s tated that the ulceration over the plantar surface of the right great toe began as a callus. She sta karlie that the wound had been treated with antibiotics. She stated that the wound began in December of this year. She stated that she had been keeping her wound clean by cleansing with Dial soap. She stated that prior to being seen in the Wound Center, she had been dressing the wound with Triple Antibiotic ointment followed by gauze. After being seen in the Wound Center, the patient was placed on dressin g changes of Medihoney and gauze secured with Coban. PHYSICAL EXAMINATION: VITAL SIGNS: Temperature 97.6, pulse 99, respirations 18, blood pressure 129/81. EXTREMITIES: The ulceration of the plantar surface of the right great toe has almost healed complete ly. No purulent drainage is associated with the wound. No erythema of the skin surrounding the woun d is present. No maceration of the skin of the periwound is noted. A dorsalis pedis pulse is palpab le on the right. No significant edema of the right foot is present on exam today. ASSESSMENT AND PLAN: 1. Ulceration of plantar surface of right great toe as described above. Dressing changes of Medihon ey will be discontinued. Dressing changes of Xeroform gauze followed by gauze and Coban are to be pe rformed on a daily basis after cleansing and irrigation. The patient will continue to perform her ow n dressing changes. I will see Ms. Landry again in two weeks. 2. Diabetes mellitus. Accu-Cheks will be obtained at the time of the patient's clinic visits. The patient has been reminded that for optimal wound healing, her blood glucoses should remain below 150. 3. History of anemia. 4. Hypertension. 5. Osteoarthritis.
[2018-06-15] MEDS ORDERED: Sodium Chloride 0.9% 15 ML NEB ONE (19:20)
== END 2018-06-15 08:13 | disposition home or self-care (01) ==
LOC: WCC 08:12
PROVIDERS: ATTEND Family Medicine
DX: E11.621 Type 2 diabetes mellitus with foot ulcer (principal); L97.519 Non-pressure chronic ulcer of other part of right foot with unspecified severity; D64.9 Anemia, unspecified; I10 Essential (primary) hypertension; M19.90 Unspecified osteoarthritis, unspecified site
CPT/HCPCS: 36416; 97602; A4218

== ENCOUNTER 2018-07-06 08:44 | Outpatient (CLI) | payer MEDICAID ==
[~2018-07-06 08:44] MED LIST: Sodium Chloride 0.9% 15 ML NEB ONE
--- NOTE | 2018-07-06 09:33 | PRG ---
DATE OF SERVICE: 07/06/2018 HISTORY: Ms. Laurel Black is a very pleasant 38-year-old who presents to the [facility]ound Center for evaluation of an ulceration of the plantar surface of the right great toe. The patient previously s tated that the ulceration over the plantar surface of the right great toe began as a callus. She sta karlie that the wound had been treated with the antibiotics. She stated that the wounds began in December of this year. She stated that she had been keeping her wound clean by cleansing with Dial soap. She s tated that prior to being seen in the Wound Center, she had been dressing the wound with Triple Antib iotic ointment followed by gauze. After being seen in the Wound Center, the patient was placed on dr bebeto changes of Medihoney and gauze secured with Coban. More recently, the patient has been perfor ra dressing changes of Xeroform gauze for her right great toe wound. PHYSICAL EXAMINATION: VITAL SIGNS: Temperature 97.8, pulse 86, respirations 17, blood pressure 122/75. Accu-Chek 287. EXTREMITIES: The ulceration of the plantar surface of the right great toe has almost healed complete ly. Callus associated with the wound was debrided with an excisional partial-thickness debridement w ith the use of scissors. No purulent drainage is associated with the wound. No erythema of the skin surrounding the wound is present. No maceration of the skin of the periwound is noted. No signific ant edema of the right foot is present on exam today. ASSESSMENT AND PLAN: 1. Ulceration of plantar surface of right great toe as described above. Dressing changes of Xerofor m gauze followed by gauze and tape are to be performed on a daily basis after cleansing and irrigatio n. The patient will continue to perform her own dressing changes. I will see Ms. Black again in 2 w eeks if her wound is still present at this time. 2. Diabetes mellitus. The patient's Accu-Chek in clinic today is 287. The patient has been reminde d that for optimal wound healing, her blood glucoses should remain below 150. 3. History of anemia. 4. Hypertension. 5. Osteoarthritis.
== END 2018-07-06 08:45 | disposition home or self-care (01) ==
LOC: WCC 08:44
PROVIDERS: ATTEND Family Medicine
DX: E11.621 Type 2 diabetes mellitus with foot ulcer (principal); L97.519 Non-pressure chronic ulcer of other part of right foot with unspecified severity; I10 Essential (primary) hypertension; M19.90 Unspecified osteoarthritis, unspecified site; Z86.2 Personal history of diseases of the blood and blood-forming organs and certain disorders involving the immune mechanism
CPT/HCPCS: 36416; A4218

== ENCOUNTER 2018-07-23 09:35 | Outpatient (CLI) | payer MEDICAID ==
--- NOTE | 2018-07-23 12:00 | PRG ---
DATE OF SERVICE: 07/23/2018 SUBJECTIVE: Ms. Laurel Black is a very pleasant 38-year-old, who presents to the Wound Center for evaluation of an ulceration of the plantar surface of the right great toe. The patient previously stated that the ulceration over the plantar surface of the right great toe began as a callus. She stated that the wound had been treated with antibiotics. She stated that the wound began in December of this year. She stated that she has been keeping her wound clean by cleansing with soap. She stated that, prior to being seen in the Wound Center, she had been dressing the wound with triple antibiotic ointment followed by gauze. After being seen in the Wound Center, the patient was placed on dressing changes of Medihoney and gauze, secured with Coban. More recently, the patient has been performing dressing changes of Xeroform gauze for her right great toe wound. OBJECTIVE: VITAL SIGNS: Temperature 97.6, pulse 97, respirations 16, blood pressure 126/79. Accu-Chek 206. EXTREMITIES: The ulceration of the plantar surface of the right great toe has increased in its dimensions since the patient's last visit. A sample of the tissue within the wound margins was excised with the use of scissors and sent to Pathology for evaluation for fungus and/or malignancy. No purulent drainage is associated with the wound. No erythema of the skin surrounding the wound is present. No maceration of the skin of the periwound is noted. No significant edema of the right foot is present on exam today. Bone is palpable with forceps within the wound margins, but does not seem to be exposed. ASSESSMENT AND PLAN: 1. Ulceration of plantar surface of right great toe as described above. Dressing changes of iodoform gauze are to be performed on a daily basis after cleansing and irrigation. The patient will continue to perform her own dressing changes. Arrangements will be made for MRI of the right forefoot to look for findings suggestive of osteomyelitis. I will see Ms. Black again in two weeks. 2. Diabetes mellitus. The patient's Accu-Chek in clinic today is 206. The patient has been reminded that for optimal wound healing, her blood glucoses should remain below 150. 3. History of anemia. 4. Hypertension. 5. Osteoarthritis. Job ID: [id number]
== END 2018-07-23 09:36 | disposition home or self-care (01) ==
LOC: WCC 09:35
PROVIDERS: ATTEND Family Medicine
DX: E11.621 Type 2 diabetes mellitus with foot ulcer (principal); L97.519 Non-pressure chronic ulcer of other part of right foot with unspecified severity; I10 Essential (primary) hypertension; M19.90 Unspecified osteoarthritis, unspecified site; Z86.2 Personal history of diseases of the blood and blood-forming organs and certain disorders involving the immune mechanism
CPT/HCPCS: 36416; A4218

== ENCOUNTER 2018-07-30 08:44 | Outpatient (CLI) | payer MEDICAID ==
--- NOTE | 2018-07-30 11:03 | PRG ---
DATE OF SERVICE: 07/30/2018 HISTORY: Ms. Laurel Black is a very pleasant 38-year-old, who presents to the Wound Center for evaluation of an ulceration of the plantar surface of the right great toe. The patient previously stated that the ulceration over the plantar surface of the right great toe began as a callus. She stated that the wound had been treated with antibiotics. She stated that the wound began in December of this year. She stated that she had been keeping her wound clean by cleansing with soap. She stated that prior to being seen in the Wound Center, she had been dressing the wound with triple antibiotic ointment followed by gauze. After being seen in the Wound Center, the patient was placed on dressing changes of Medihoney and gauze, secured with Coban. More recently, the patient had been performing dressing changes of Xeroform gauze for her right great toe wound. At the time of the patient's last visit, dressing changes of iodoform gauze were initiated. The patient was instructed to perform the dressing changes on a daily basis after cleansing and irrigation. PHYSICAL EXAMINATION: VITAL SIGNS: Temperature 98.1, pulse 109, respirations 19, and blood pressure 125/70. Accu-Chek 363. EXTREMITIES: The ulceration of the plantar surface of the right great toe is still present. No purulent drainage is associated with the wound. Mottling of the skin surrounding the wound is present. Maceration of the skin of the periwound is also noted. Gangrenous changes of the skin of the dorsum of the right great toe are also noted on exam today. ASSESSMENT AND PLAN: 1. Ulceration of the plantar surface of right great toe as described above. The skin of the periwound is now mottled. The appearance of the wound has markedly deteriorated since the patient's last visit. MRI of the right forefoot to look for findings suggestive of osteomyelitis was unable to be obtained as an outpatient for insurance reasons. I have discussed the treatment plan with one of the two ER physicians on duty today in the [facility]. Ms. Black agrees to report to the Emergency Department upon her discharge from clinic today. 2. Diabetes mellitus. The patient's Accu-Chek in clinic today is 363. 3. History of anemia. 4. Hypertension. 5. Osteoarthritis. Job ID: [id number]
[2018-07-30] MEDS ORDERED: Sodium Chloride 0.9% 15 ML NEB ONE (15:00)
[2018-07-30] MEDS ORDERED: Acetaminophen 325 MG TAB PO PRN (15:51)
[2018-07-30] MEDS ORDERED: HumaLOG 300 UNITS/3 ML VIAL SC PRN (15:54)
[2018-07-30] MEDS ORDERED: Dextrose 5% in Water 1,000 ML IV PRN (15:54)
[2018-07-30] MEDS ORDERED: Dextrose 50% Abboject 50 ML SYRINGE SLOW IVP PRN (15:54)
[2018-07-30] MEDS ORDERED: Piperacillin/Tazobactam 3.375 GM in Sodium Chloride 0.9% 100 ML IVPB SCH (18:00)
[2018-07-30] MEDS ORDERED: Non-Formulary Item 1 EACH (Insulin Glargine,Hum.Rec.Anlog [Lantus Solostar] 30 UNIT) SQ SCH (21:00)
[2018-07-30] MEDS ORDERED: Vancomycin HCl 1 GM in Premix Bag 1 BAG IVPB SCH (21:00)
[2018-07-30] MEDS ORDERED: Atorvastatin Calcium 10 MG TAB PO SCH (21:00)
--- NOTE | 2018-07-31 01:26 | HP ---
HISTORY OF PRESENT ILLNESS: The patient is a very pleasant 38-year-old female with past medical history of diabetes. She is currently on insulin. The patient comes in with chills and pain on her right great toe x1 day. The patient states that she has had this wound on her right toe, which has been going on for quite some time and had some callus around it. [facility] some debridement around, so it is able to heal from the bottom up. However, the patient started to have some drainage, which was noted about a couple weeks ago, so [facility] decided to packing it for it to heal. However, yesterday, she started having some chills, started to have some swelling around her right leg area, so the [facility] asked her to come into the ER for further evaluation. The patient currently denies any fevers or chills; however, she has had chills at home. Denies any nausea, vomiting, abdominal pain, chest pain, or shortness of breath. PAST MEDICAL HISTORY: Significant for diabetes, diabetic nephropathy, chronic knee pain, obesity, dyslipidemia, and hypertension. PAST SURGICAL HISTORY: She has had a x2, tubal ligation and left second toe amputation for osteomyelitis. REVIEW OF SYSTEMS: All negative except for the ones mentioned above in the HPI. SOCIAL HISTORY: She denies any smoking, drug use, alcohol use. She is currently a full code. FAMILY HISTORY: Both parents had diabetes and heart disease. ALLERGIES: SHE HAS NO KNOWN DRUG ALLERGIES. MEDICATIONS: She takes; 1. Lantus 30 units b.i.d. 2. NovoLog 8 units with her meals. PHYSICAL EXAMINATION: VITAL SIGNS: As of the following; temperature of 98.7, heart rate of 85, blood pressure of 130/88, respirations 18, and 98% on room air. GENERAL: She is awake, alert, and oriented x3. Does not appear to be in any distress. CV: S1 and S2 present. No murmurs, rubs, or gallops. LUNGS: Clear to auscultation. No rhonchi or wheezes noted. ABDOMEN: Soft and nontender. Bowel sounds are present x2. No guarding. No hepatomegaly or splenomegaly noted. NEUROLOGICAL: She is intact. No focal deficits noted. MUSCULOSKELETAL: She does have this small opening on her ventral part, the tip of the right great toe has some clear discharge. She does have some erythema around it. Pedal pulses are palpable on both feet. PSYCHIATRIC: She is oriented to person, place, and time, and she is awake and she has a normal affect. DIAGNOSTIC DATA: In the ER, the patient is supposed to have an MRI which is pending. LABORATORY RESULTS: As of the following; WBCs of 9.9, hemoglobin of 13.3, hematocrit of 39.3, and platelets of 224. The patient's sodium is 137, potassium of 4.0, BUN of 8, creatinine of 0.95, glucose was 243. Lactic acid was 4.2 initially, then it was 3.2. AST is mildly elevated at 37. C-reactive protein is 6.75. The patient also had a toe x-ray, which indicated no diagnostic evidence of osteomyelitis. ASSESSMENT AND PLAN: The patient is a very pleasant 38-year-old female who presents to the hospital with complaints of right toe pain. 1. Right toe cellulitis/possible osteomyelitis. We will get an MRI without contrast to see and evaluate that foot. Also we will consult Podiatry for possible amputation. We will start the patient on some Zosyn and vancomycin for now and continue to monitor. 2. Diabetes. Her sugars are really high and we will start the patient back on her 40 units b.i.d. and also sliding scale insulin. 3. Obesity. Continue to monitor. 4. Deep venous thrombosis prophylaxis. We will put the patient on subcu Lovenox. Job ID: [id number]
[2018-07-31] MEDS ORDERED: Lisinopril 5 MG TAB PO SCH (09:00)
[2018-07-31] MEDS ORDERED: Enoxaparin Sodium 40 MG/0.4 ML SYRINGE SC SCH (09:00)
[2018-07-31] MEDS ORDERED: Saccharomyces boulardii 250 MG CAP PO SCH (09:00)
== END 2018-07-30 08:45 | disposition home or self-care (01) ==
LOC: WCC 08:44
PROVIDERS: ATTEND Family Medicine
DX: E11.621 Type 2 diabetes mellitus with foot ulcer (principal); L97.519 Non-pressure chronic ulcer of other part of right foot with unspecified severity; I10 Essential (primary) hypertension; M19.90 Unspecified osteoarthritis, unspecified site; Z86.2 Personal history of diseases of the blood and blood-forming organs and certain disorders involving the immune mechanism
CPT/HCPCS: 36416; 97602; A4218